=== PATIENT | male | born 1970 | race Caucasian/White ===

== ENCOUNTER 2018-01-15 10:59 | Emergency (ER) | payer BC ==
[~2018-01-15] VITALS: Ht 182.9 cm; Wt 99.7 kg
[~2018-01-15 10:59] MED LIST: ADVI200C9 PO; ALKATAB; PROM6.257 PO
[2018-01-15 11:04] VITALS: BP 134/88; PULSE 83; RESP 16; TEMP 97.8; O2SAT 95
--- NOTE | 2018-01-15 11:26 | PD ---
HPI Chief Complaint: Abdominal Pain Time Seen by Provider: 11:13 Travel History International Travel<30 days: No Contact w/Intl Traveler<30days: No Traveled to known affect area: No History of Present Illness HPI 47yo M with PMH of chronic pain on oxycodone and follows with pain management presents to the ED with c/o abdominal pain for 2 days. Pain is sharp and constant. Said pain is mainly periumbilical but radiates to lower abdomen as well. Had nausea and vomiting. Had nonbloody diarrhea last night. Decreased appetite. Denies any fever but had sweats. Denies any chest pain, sob, dysuria , hematuria, testicular pain, penile rash or discharge, focal weakness or numbness. Had right shoulder surgery before. Denies any abdominal surgery. PFSH Past Surgical History Other Surgery: Yes (MAIN ARTERY SEWN BACK IN LEFT WRIST IN 2007) Social History Alcohol Use: No Tobacco Use: No Substance Use: No Allergies-Medications (Allergen,Severity, Reaction): Coded Allergies: No Known Allergies (Verified Adverse Reaction, Unknown, 01/15/18) Reported Meds & Prescriptions Reported Meds & Active Scripts Active Reported Oxycodone (Oxycodone HCl) 15 Mg Tab 15 Mg PO Q4H PRN Review of Systems Except as stated in HPI: all other systems reviewed are Neg Physical Exam Narrative GENERAL: 47yo M in mild distress. SKIN: Focused skin assessment warm/dry. HEAD: Atraumatic. Normocephalic. EYES: Pupils equal and round. No scleral icterus. No injection or drainage. ENT: No nasal bleeding or discharge. Mucous membranes pink and moist. NECK: Trachea midline. No JVD. CARDIOVASCULAR: Regular rate and rhythm. No murmur appreciated. RESPIRATORY: No accessory muscle use. Clear to auscultation. Breath sounds equal bilaterally. GASTROINTESTINAL: Abdomen soft, +TTP epigastric and periumbilical region. Mild ttp LLQ and RLQ. No rebound tenderness or guarding. MUSCULOSKELETAL: No obvious deformities. No clubbing. No cyanosis. No edema. NEUROLOGICAL: Awake and alert. No obvious cranial nerve deficits. Motor grossly within normal limits. Normal speech. PSYCHIATRIC: Appropriate mood and affect; insight and judgment normal. Data Data Last Documented VS Vital Signs Date Time Temp Pulse Resp B/P (MAP) Pulse Ox O2 Delivery O2 Flow Rate FiO2 01/15/18 11:04 97.8 83 16 134/88 (103) 95 Orders Orders Complete Blood Count With Diff (01/15/18 11:21) Comprehensive Metabolic Panel (01/15/18 11:21) Lipase (01/15/18 11:21) Urinalysis - C+S If Indicated (01/15/18 11:21) Ct Abd/Pel W Iv Contrast(Rout) (01/15/18 11:21) Ondansetron Inj (Zofran Inj) (01/15/18 11:30) Ketorolac Inj (Toradol Inj) (01/15/18 11:30) Morphine Inj (Morphine Inj) (01/15/18 11:30) Iohexol 350 Inj (Omnipaque 350 Inj) (01/15/18 11:55) Morphine Inj (Morphine Inj) (01/15/18 13:15) Labs Laboratory Tests Test 01/15/18 11:46 01/15/18 11:49 Urine Collection Type VOIDED Urine Color YELLOW Urine Turbidity CLEAR Urine pH 7.0 Urine Specific [place] 1.015 Urine Protein NEG mg/dL Urine Glucose (UA) 1000 OR GREATER mg/dL Urine Ketones TRACE mg/dL Urine Occult Blood NEG Urine Nitrite NEG Urine Bilirubin NEG Urine Urobilinogen 0.2 MG/DL Urine Leukocyte Esterase NEG Urine WBC 0-2 /hpf Urine Squamous Epithelial Cells 0-2 /hpf Microscopic Urinalysis Comment CULT NOT INDICATED White Blood Count 5.7 TH/MM3 Red Blood Count 6.04 MIL/MM3 Hemoglobin 16.7 GM/DL Hematocrit 50.1 % Mean Corpuscular Volume 83.0 FL Mean Corpuscular Hemoglobin 27.7 PG Mean Corpuscular Hemoglobin Concent 33.3 % Red Cell Distribution Width 12.2 % Platelet Count 140 TH/MM3 Mean Platelet Volume 10.5 FL Neutrophils (%) (Auto) 47.8 % Lymphocytes (%) (Auto) 38.3 % Monocytes (%) (Auto) 8.4 % Eosinophils (%) (Auto) 4.4 % Basophils (%) (Auto) 1.1 % Neutrophils # (Auto) 2.6 TH/MM3 Lymphocytes # (Auto) 2.2 TH/MM3 Monocytes # (Auto) 0.5 TH/MM3 Eosinophils # (Auto) 0.3 TH/MM3 Basophils # (Auto) 0.1 TH/MM3 CBC Comment DIFF FINAL Differential Comment Blood Urea Nitrogen 7 MG/DL Creatinine 0.74 MG/DL Random Glucose 302 MG/DL Total Protein 7.6 GM/DL Albumin 3.9 GM/DL Calcium Level 9.3 MG/DL Alkaline Phosphatase 135 U/L Aspartate Amino Transf (AST/SGOT) 82 U/L Alanine Aminotransferase (ALT/SGPT) 176 U/L Total Bilirubin 1.0 MG/DL Sodium Level 134 MEQ/L Potassium Level 4.7 MEQ/L Chloride Level 102 MEQ/L Carbon Dioxide Level 25.5 MEQ/L Anion Gap 7 MEQ/L Estimat Glomerular Filtration Rate 114 ML/MIN Lipase 95 U/L [facility] Medical Decision Making Medical Screen Exam Complete: Yes Emergency Medical Condition: Yes Differential Diagnosis Pancreatitis vs. diverticulitis vs. appendicitis vs. gastroenteritis Narrative Course 47yo M with chronic pain on oxycodone here with c/o abdominal pain for 2 days. Pain is more periumbilical and was associated with vomiting and diarrhea. However, that vomiting, nausea and diarrhea has resolved. Vital signs normal. Labs reviewed, no leukocytosis. Glucose elevated at 302. Normal CO2 and normal anion gap. Mild elevated liver enzymes. Lipase normal. CT a/p showed normal appearing appendix. Possible enteritis without free air or free fluid. Pt was given morphine, zofran and pain has improved. Denies any nausea and tolerating PO. Pt is well appearing and instructed to follow up with GI as outpatient as needed. Pt instructed to follow up with PMD for elevated blood glucose as well. Return precautions given. Diagnosis Primary Impression: Enteritis Referrals: Pamela Goodwin MD as needed Elevated liver enzyme and possible enteritis on CT. Patient Instructions: General Instructions Departure Forms: Tests/Procedures Additional Instructions: Please follow up with bottom loader as needed for elevated liver enzyme and possible enteritis seen on CT scan. Please follow up with your primary care physician regarding elevated blood sugar. Please return to the ED if symptoms worsen. Med/Other Pt SpecificInfo: Prescription(s) given Scripts Acetaminophen (Tylenol) 325 Mg Tab 650 MG PO Q6H Y for PAIN SCALE 1 TO 4, #20 TAB 0 Refills Prov: Barb Rebolledo 01/15/18 Disposition: 01 DISCHARGE HOME Condition: Stable RebolledoBarb DO Jan 15, 2018 11:26
[2018-01-15] MEDS ORDERED: MORPHINE SULFATE 2 MG/ML SYRINGE IV PUSH ONE (11:30)
[2018-01-15] MEDS ORDERED: ONDANSETRON HCL 4 MG/2 ML VIAL IVP ONE (11:30)
[2018-01-15] MEDS ORDERED: KETOROLAC TROMETHAMINE 30 MG/ML (IVP) VIAL IVP ONE (11:30)
[2018-01-15] MEDS ORDERED: OXYC15TA PO (11:39)
[2018-01-15 11:52] LABS: BILIRUBIN, URINE NEG (NEG); BLOOD, URINE NEG (NEG); GLUCOSE,URINE 1000 OR GREATER mg/dL (NEG); KETONE, URINE TRACE mg/dL (NEG); NITRITE,URINE NEG (NEG); URINE COLOR YELLOW (YELLW/STRAW); URINE LEUKOCYTE ESTERASE NEG (NEG)
[2018-01-15 11:52] LABS: AUTOMATED NEUTROPHIL # 2.6 TH/MM3 (1.8-7.7); BASOPHIL # 0.1 TH/MM3 (0-0.2); BASOPHIL % 1.1 % (0.0-2.0); EOSINOPHIL # 0.3 TH/MM3 (0-0.4); EOSINOPHIL % 4.4 % (0.0-4.0); HEMATOCRIT 50.1 % (39.0-51.0); HEMOGLOBIN 16.7 GM/DL (13.0-17.0); LYMPH % 38.3 % (9.0-44.0); LYMPHOCYTE # 2.2 TH/MM3 (1.0-4.8); MEAN CORPUSCULAR HEMOGLOBIN 27.7 PG (27.0-34.0); MEAN CORPUSCULAR HGB CONC 33.3 % (32.0-36.0); MEAN PLATELET VOLUME 10.5 FL (7.0-11.0); MONO % 8.4 % (0.0-8.0); MONOCYTE # 0.5 TH/MM3 (0-0.9); NEUT % 47.8 % (16.0-70.0); PLATELET COUNT 140 TH/MM3 (150-450); RED BLOOD COUNT 6.04 MIL/MM3 (4.50-5.90); RED CELL DISTRIBUTION WIDTH 12.2 % (11.6-17.2); WHITE BLOOD COUNT 5.7 TH/MM3 (4.0-11.0)
[2018-01-15] MEDS ORDERED: IOHEXOL 350 MG/ML 10 ML VIAL (for RAD DIAG) IVCONTRAST ONE (11:55)
[2018-01-15 12:03] LABS: CHLORIDE 102 MEQ/L (98-107); SODIUM (NA) 134 MEQ/L (136-145)
[2018-01-15 12:06] LABS: CALCIUM 9.3 MG/DL (8.5-10.1)
[2018-01-15 12:07] LABS: ALBUMIN 3.9 GM/DL (3.4-5.0); BICARBONATE 25.5 MEQ/L (21.0-32.0); BLOOD UREA NITROGEN 7 MG/DL (7-18); GLUCOSE,RANDOM 302 MG/DL (74-106)
[2018-01-15 12:10] LABS: ALT (GPT) 176 U/L (12-78); AST (GOT) 82 U/L (15-37); CREATININE 0.74 MG/DL (0.60-1.30); GLOMERULAR FILTRATION RATE 114 ML/MIN (>89)
[2018-01-15 12:11] LABS: TOTAL PROTEIN 7.6 GM/DL (6.4-8.2)
[2018-01-15 12:13] LABS: ALKALINE PHOSPHATASE 135 U/L (45-117)
[2018-01-15 12:21] LABS: SQUAMOUS EPITHELIAL CELL URINE 0-2 /hpf (0-5); WBC, URINE 0-2 /hpf (0-5)
--- NOTE | 2018-01-15 12:21 | RADRPT ---
EXAM DATE/TIME: 01/15/2018 11:50 [facility] COMPARISON: No previous studies available for comparison. INDICATIONS : Periumbilical pain radiating to right lower quadrant area with nausea and vomiting. Evaluate for appe ndicitis. IV CONTRAST: 95 cc Omnipaque 350 (iohexol) IV ORAL CONTRAST: No oral contrast ingested. RADIATION DOSE: 18.07 CTDIvol (mGy) MEDICAL HISTORY : None SURGICAL HISTORY : None. ENCOUNTER: Initial ACUITY: 3 days PAIN SCALE: 6/10 LOCATION: Right lower quadrant TECHNIQUE: Volumetric scanning of the abdomen and pelvis was performed. Using automated exposure control and ad justment of the mA and/or kV according to patient size, radiation dose was kept as low as reasonably achievable to obtain optimal diagnostic quality images. DICOM format image data is available electro nically for review and comparison. FINDINGS: Lower lungs are clear. Moderate fatty replacement of the liver. The gallbladder unremarkable Spleen and pancreas appear normal Adrenal glands appear normal Normal right kidney 2 CM cyst left kidney There is no adenopathy There is no ascites. There is a normal appearing appendix in the right lower quadrant without inflammatory changes. There is very minimal bowel enhancement of small bowel with the umbilicus suggesting etiology such as enteritis. There is no free air. There is no ascites. Pelvic contents are unremarkable. CONCLUSION: Normal appearing appendix Possible enteritis without free air or free fluid Deng Santoro MD FACR on January 15, 2018 at 12:15 Board Certified Radiologist. This report was verified electronically.
[2018-01-15] MEDS ORDERED: MORPHINE SULFATE 4 MG/ML INJ IV PUSH ONE (13:15)
[2018-01-15] MEDS ORDERED: TYLE325T PO (13:24)
== END 2018-01-15 14:08 | disposition home or self-care (01) ==
LOC: PHED 10:59
DX: K52.9 Noninfective gastroenteritis and colitis, unspecified (principal); R74.8 Abnormal levels of other serum enzymes; G89.29 Other chronic pain
CPT/HCPCS: 74177; 80053; 81001; 83690; 85025; 96374; 96375; 96376; 99284; J2270; J2405; Q9967